=== PATIENT | female | born 1995 | race Caucasian/White ===

== ENCOUNTER → 2016-12-12 | Outpatient (CLI) | payer OTHER, BC ==
[~2016-12-12] MED LIST: IBUP-1277 PO
--- NOTE | 2016-12-12 14:27 | DIAGNOSTIC IMAGING REPORT ---
RIGHT ELBOW MIN 3 VIEWS ROUTINE CLINICAL HISTORY: R ELBOW PAIN Right pain COMPARISON: None. DISCUSSION: The bones and joint spaces appear intact. There is no evidence of fracture, dislocation or bony disease. There is no evidence for soft tissue swelling. IMPRESSION: Negative study. Electronically signed by: Marcello Allen M.D. 12/12/2016 2:25 PM Dictated Date/Time: 12/12/2016 2:25 PM
== END | disposition home or self-care (01) ==
LOC: C.RAD1850 13:45
PROVIDERS: ATTEND Emergency Medicine
DX: M25.521 Pain in right elbow (principal); W19.XXXA Unspecified fall, initial encounter